=== PATIENT | female | born 1975 | race Two or more races ===

== ENCOUNTER 2019-01-30 05:54 | Emergency (ER) | payer MEDICAID, OTHER ==
[~2019-01-30] VITALS: Ht 149.9 cm; Wt 102.1 kg
[2019-01-30 07:40] VITALS: BP 150/70
[2019-01-30] MEDS ORDERED: KETOROLAC TROMETH 60MG/2ML VIAL IM ONE (07:45)
== END 2019-01-30 07:58 | disposition home or self-care (01) ==
LOC: ER 05:54
DX: G89.29 Other chronic pain (principal); M54.5 Low back pain; Z76.0 Encounter for issue of repeat prescription
CPT/HCPCS: 96372; 99283; J1885

== ENCOUNTER 2021-12-03 23:32 | Emergency (ER) | payer MEDICAID ==
[~2021-12-03] VITALS: Ht 149.9 cm; Wt 127.0 kg
[2021-12-03 23:34] VITALS: BP 134/67
== END 2021-12-04 02:34 | disposition home or self-care (01) ==
LOC: ER 23:37
DX: H66.92 Otitis media, unspecified, left ear (principal)

== ENCOUNTER 2022-03-29 19:14 | Emergency (ER) | payer MEDICAID ==
[~2022-03-29] VITALS: Ht 149.9 cm; Wt 130.0 kg
[2022-03-29] MEDS ORDERED: DexAMETHasone SOD PHOS 10MG/1ML VIAL INJ IV ONE (20:30)
[2022-03-29] MEDS ORDERED: KETOROLAC TROMETH 30 MG/ML 1ML VIAL IV ONE (20:30)
[2022-03-29] MEDS ORDERED: cefTRIAXone SOD 1,000 MG VL IV ONE (20:30)
[2022-03-29 21:02] VITALS: BP 142/87
[2022-03-29] MEDS ORDERED: AMOX500T86 PO (21:34)
[2022-03-29] MEDS ORDERED: PRED20TA2 PO (21:34)
== END 2022-03-30 04:26 | disposition home or self-care (01) ==
LOC: ER 19:14
DX: R51.9 Headache, unspecified (principal)